=== PATIENT | male | born 1945 | race African-American/Black ===

== ENCOUNTER 2024-09-06 12:14 | Emergency (ER) | payer MEDICARE, MEDICAID ==
[~2024-09-06] VITALS: Ht 177.8 cm; Wt 72.0 kg
[~2024-09-06 12:14] MED LIST: ASPI-1406 PO; DOCU-422 PO; FOLI1TAB87 PO; HYDR12.54 PO; LACT10SO70 PO; LEVO750T68 MT; NORT10CA PO
[2024-09-06 12:26] VITALS: O2SAT 99
[2024-09-06 13:58] LABS: CLARITY URINE CLEAR (CLEAR); COLOR URINE YELLOW (YELLOW); GLUCOSE URINE NEGATIVE (NEGATIVE); KETONES URINE NEGATIVE (NEGATIVE); LEUKOCYTE ESTERASE URINE TRACE (NEGATIVE); NITRITE URINE NEGATIVE (NEGATIVE); OCCULT BLOOD URINE NEGATIVE (NEGATIVE); PH URINE 6.5 (4.5-8.0); PROTEIN URINE NEGATIVE (NEGATIVE); SPECIFIC GRAVITY URINE 1.012 (1.005-1.030); UROBILINOGEN URINE 0.2 E.U./dL (0.2-1.0)
[2024-09-06 14:31] LABS: WBC URINE 0-2 /hpf (0-2)
[2024-09-06 14:32] LABS: RBC URINE NONE SEEN /hpf (0-2)
[2024-09-06 14:33] LABS: SQUAMOUS EPITHELIAL CELL URINE RARE /lpf (RARE/1+)
[2024-09-06 14:34] LABS: BACTERIA URINE TRACE
[2024-09-06 15:26] VITALS: BP 117/71; PULSE 72; RESP 18; TEMP 36.5; O2SAT 99
== END 2024-09-06 15:30 | disposition home or self-care (01) ==
LOC: ER 12:14
DX: R33.9 Retention of urine, unspecified (principal); I10 Essential (primary) hypertension; Z79.899 Other long term (current) drug therapy; Z86.73 Personal history of transient ischemic attack (TIA), and cerebral infarction without residual deficits; Z88.0 Allergy status to penicillin; Z88.6 Allergy status to analgesic agent
CPT/HCPCS: 51702; 81003; 99284

== ENCOUNTER 2024-10-25 11:04 | Emergency (ER) | payer MEDICARE, MEDICAID ==
[~2024-10-25] VITALS: Ht 172.7 cm; Wt 65.0 kg
[2024-10-25 11:14] VITALS: O2SAT 100
[2024-10-25 11:52] LABS: BASOPHILS % 0.8 % (0.0-2.0); EOSINOPHILS % 10.2 % (0.0-5.0); HEMATOCRIT. 31.1 % (42.0-52.0); HEMOGLOBIN. 10.4 g/dL (14.0-18.0); LYMPHOCYTES % 12.2 % (20.0-50.0); MEAN PLATELET VOLUME 6.5 fl (7.4-10.4); MONOCYTES % 8.9 % (2.0-8.0); NEUTROPHILS % 67.9 % (40.0-76.0); PLATELET 160 x1000/uL (130-400); RED BLOOD CELL COUNT 3.23 mill/uL (4.7-6.1); RED CELL DISTRIBUTION WIDTH 17.6 % (11.6-14.6)
[2024-10-25 12:09] LABS: CREATININE 1.1 mg/dL (0.6-1.3); UREA NITROGEN BLOOD 15 mg/dL (9-23)
[2024-10-25 13:37] LABS: CLARITY URINE CLEAR (CLEAR); COLOR URINE YELLOW (YELLOW); GLUCOSE URINE NEGATIVE (NEGATIVE); KETONES URINE NEGATIVE (NEGATIVE); LEUKOCYTE ESTERASE URINE NEGATIVE (NEGATIVE); NITRITE URINE NEGATIVE (NEGATIVE); OCCULT BLOOD URINE NEGATIVE (NEGATIVE); PH URINE 7.0 (4.5-8.0); PROTEIN URINE NEGATIVE (NEGATIVE); SPECIFIC GRAVITY URINE 1.016 (1.005-1.030); UROBILINOGEN URINE 1.0 E.U./dL (0.2-1.0)
[2024-10-25 14:31] VITALS: BP 130/70; PULSE 68; RESP 18; TEMP 36.9; O2SAT 99
== END 2024-10-25 14:32 | disposition home or self-care (01) ==
LOC: ER 11:04
DX: R33.9 Retention of urine, unspecified (principal); I10 Essential (primary) hypertension; Z86.73 Personal history of transient ischemic attack (TIA), and cerebral infarction without residual deficits; Z79.899 Other long term (current) drug therapy; Z79.82 Long term (current) use of aspirin; Z88.0 Allergy status to penicillin; Z88.6 Allergy status to analgesic agent
CPT/HCPCS: 36415; 51702; 80048; 81003; 85025; 99284

== ENCOUNTER 2024-12-01 07:43 | Emergency (ER) | payer MEDICARE, MEDICAID ==
[~2024-12-01] VITALS: Ht 177.8 cm; Wt 69.0 kg
[2024-12-01 08:03] VITALS: O2SAT 100
[2024-12-01 09:06] LABS: HEMATOCRIT. 33.7 % (42.0-52.0); HEMOGLOBIN. 10.8 g/dL (14.0-18.0); MEAN PLATELET VOLUME 6.9 fl (7.4-10.4); PLATELET 170 x1000/uL (130-400); RED BLOOD CELL COUNT 3.40 mill/uL (4.7-6.1); RED CELL DISTRIBUTION WIDTH 17.2 % (11.6-14.6)
[2024-12-01 09:15] LABS: CREATININE 1.2 mg/dL (0.6-1.3); UREA NITROGEN BLOOD 19 mg/dL (9-23)
[2024-12-01 10:44] LABS: CLARITY URINE CLEAR (CLEAR); COLOR URINE YELLOW (YELLOW); GLUCOSE URINE NEGATIVE (NEGATIVE); KETONES URINE NEGATIVE (NEGATIVE); LEUKOCYTE ESTERASE URINE NEGATIVE (NEGATIVE); NITRITE URINE NEGATIVE (NEGATIVE); OCCULT BLOOD URINE NEGATIVE (NEGATIVE); PH URINE 7.0 (4.5-8.0); PROTEIN URINE NEGATIVE (NEGATIVE); SPECIFIC GRAVITY URINE 1.016 (1.005-1.030); UROBILINOGEN URINE 0.2 E.U./dL (0.2-1.0)
[2024-12-01 11:41] LABS: EOSINOPHILS % MANUAL 16.0 % (0.0-5.0); LYMPHOCYTES % MANUAL 24.0 % (20.0-50.0); MONOCYTES % MANUAL 9.0 % (2.0-8.0); NEUTROPHILS % MANUAL 51.0 % (45.0-75.0); PLATELET ESTIMATE NORMAL
[2024-12-01 15:06] VITALS: BP 155/60; PULSE 72; RESP 15; TEMP 36.9; O2SAT 100
== END 2024-12-01 15:08 | disposition home or self-care (01) ==
LOC: ER 07:43
DX: R33.9 Retention of urine, unspecified (principal); E78.00 Pure hypercholesterolemia, unspecified; I10 Essential (primary) hypertension; N40.1 Benign prostatic hyperplasia with lower urinary tract symptoms; Z86.73 Personal history of transient ischemic attack (TIA), and cerebral infarction without residual deficits; Z88.0 Allergy status to penicillin; Z88.6 Allergy status to analgesic agent
CPT/HCPCS: 36415; 51702; 80048; 81003; 85025; 99284; A4606

== ENCOUNTER 2024-12-18 16:14 | Emergency (ER) | payer MEDICARE, MEDICAID ==
[~2024-12-18] VITALS: Ht 177.8 cm; Wt 68.0 kg
[2024-12-18 16:25] VITALS: TEMP 36.9; O2SAT 100
[2024-12-18] MEDS: ACETAMINOPHEN 325MG TABLET PO SCH (18:22)
[2024-12-18 19:00] LABS: HEMATOCRIT. 33.6 % (42.0-52.0); HEMOGLOBIN. 10.8 g/dL (14.0-18.0); MEAN PLATELET VOLUME 6.5 fl (7.4-10.4); PLATELET 161 x1000/uL (130-400); RED BLOOD CELL COUNT 3.40 mill/uL (4.7-6.1); RED CELL DISTRIBUTION WIDTH 17.4 % (11.6-14.6)
[2024-12-18 19:20] LABS: CREATININE 1.2 mg/dL (0.6-1.3); UREA NITROGEN BLOOD 14 mg/dL (9-23)
[2024-12-18 19:21] LABS: TROPONIN I HIGH SENSITIVITY 5 ng/L (3.0-53)
[2024-12-18 19:28] LABS: EOSINOPHILS % MANUAL 18.0 % (0.0-5.0); LYMPHOCYTES % MANUAL 21.0 % (20.0-50.0); MONOCYTES % MANUAL 7.0 % (2.0-8.0); NEUTROPHILS % MANUAL 54.0 % (45.0-75.0); PLATELET ESTIMATE NORMAL
[2024-12-18 19:58] VITALS: BP 116/60; PULSE 84; RESP 14; O2SAT 98
== END 2024-12-18 20:00 | disposition home or self-care (01) ==
LOC: ER 16:14
DX: N40.0 Benign prostatic hyperplasia without lower urinary tract symptoms (principal); R14.0 Abdominal distension (gaseous); I10 Essential (primary) hypertension; Z79.899 Other long term (current) drug therapy; Z88.0 Allergy status to penicillin; Z88.6 Allergy status to analgesic agent
CPT/HCPCS: 36415; 74176; 80048; 84484; 85025; 99284

== ENCOUNTER 2025-01-19 20:13 | Emergency (ER) | payer MEDICARE, MEDICAID ==
[~2025-01-19] VITALS: Ht 177.8 cm; Wt 73.0 kg
[2025-01-19 20:35] VITALS: O2SAT 100
[2025-01-19 21:22] LABS: CLARITY URINE CLEAR (CLEAR); COLOR URINE YELLOW (YELLOW); GLUCOSE URINE NEGATIVE (NEGATIVE); KETONES URINE NEGATIVE (NEGATIVE); LEUKOCYTE ESTERASE URINE TRACE (NEGATIVE); NITRITE URINE NEGATIVE (NEGATIVE); OCCULT BLOOD URINE NEGATIVE (NEGATIVE); PH URINE 6.0 (4.5-8.0); PROTEIN URINE NEGATIVE (NEGATIVE); SPECIFIC GRAVITY URINE 1.019 (1.005-1.030); UROBILINOGEN URINE 1.0 E.U./dL (0.2-1.0)
[2025-01-19 21:45] LABS: BACTERIA URINE 1+; RBC URINE 0-2 /hpf (0-2); SQUAMOUS EPITHELIAL CELL URINE FEW /lpf (RARE/1+); WBC URINE 0-2 /hpf (0-2)
[2025-01-19 22:18] VITALS: BP 109/73; PULSE 50; RESP 14; TEMP 36.5; O2SAT 100
== END 2025-01-19 22:38 | disposition home or self-care (01) ==
LOC: ER 20:13
DX: T83.098A Other mechanical complication of other urinary catheter, initial encounter (principal); I10 Essential (primary) hypertension; Z86.73 Personal history of transient ischemic attack (TIA), and cerebral infarction without residual deficits; Z79.899 Other long term (current) drug therapy; Z88.0 Allergy status to penicillin; Z88.6 Allergy status to analgesic agent; X58.XXXA Exposure to other specified factors, initial encounter; Y93.89 Activity, other specified; Y92.89 Other specified places as the place of occurrence of the external cause; Y99.8 Other external cause status
CPT/HCPCS: 51702; 81003; 99284

== ENCOUNTER 2025-02-01 16:53 | Emergency (ER) | payer MEDICARE, MEDICAID ==
[~2025-02-01] VITALS: Ht 167.6 cm; Wt 70.0 kg
[2025-02-01 17:03] VITALS: TEMP 36.7; O2SAT 99
[2025-02-01] MEDS ORDERED: NITR-87 MT (17:39)
[2025-02-01] MEDS: NITROFURANTOIN 100MG M/M CAPSULE PO ONE (17:45)
[2025-02-01 19:10] VITALS: BP 138/71; PULSE 57; RESP 16; O2SAT 100
== END 2025-02-01 19:12 | disposition home or self-care (01) ==
LOC: ER 16:53
DX: R33.9 Retention of urine, unspecified (principal); I10 Essential (primary) hypertension; N40.1 Benign prostatic hyperplasia with lower urinary tract symptoms; Z79.899 Other long term (current) drug therapy; Z86.73 Personal history of transient ischemic attack (TIA), and cerebral infarction without residual deficits; Z88.0 Allergy status to penicillin; Z88.6 Allergy status to analgesic agent
CPT/HCPCS: 51702; 99284

== ENCOUNTER 2025-02-21 07:06 | Inpatient (IN) | payer MEDICARE, MEDICAID ==
[~2025-02-21] VITALS: Ht 177.8 cm; Wt 68.1 kg
[~2025-02-21 07:06] MED LIST changes: +NITR-87 MT
[2025-02-21 07:08] VITALS: O2SAT 99
[2025-02-21] MEDS: ACETAMINOPHEN 1000MG/100ML 100 ML IV ONE (07:48)
[2025-02-21 07:53] LABS: BASOPHILS % 0.9 % (0.0-2.0); EOSINOPHILS % 11.2 % (0.0-5.0); HEMATOCRIT. 33.9 % (42.0-52.0); HEMOGLOBIN. 10.9 g/dL (14.0-18.0); LYMPHOCYTES % 16.2 % (20.0-50.0); MEAN PLATELET VOLUME 7.0 fl (7.4-10.4); MONOCYTES % 11.4 % (2.0-8.0); NEUTROPHILS % 60.3 % (40.0-76.0); PLATELET 154 x1000/uL (130-400); RED BLOOD CELL COUNT 3.46 mill/uL (4.7-6.1); RED CELL DISTRIBUTION WIDTH 16.8 % (11.6-14.6)
[2025-02-21 08:07] LABS: CREATININE 1.1 mg/dL (0.6-1.3)
[2025-02-21 08:08] LABS: PROTEIN TOTAL 7.1 g/dL (6.0-8.3); UREA NITROGEN BLOOD 13 mg/dL (9-23)
[2025-02-21 08:09] LABS: ASPARTATE AMINOTRANSFERASE 33 IU/L (<34)
[2025-02-21 08:10] LABS: BILIRUBIN DIRECT 0.2 mg/dL (<=3.0); BILIRUBIN TOTAL 0.5 mg/dL (0.1-1.0)
[2025-02-21 09:29] LABS: CLARITY URINE CLOUDY (CLEAR); COLOR URINE YELLOW (YELLOW); GLUCOSE URINE NEGATIVE (NEGATIVE); KETONES URINE TRACE (NEGATIVE); LEUKOCYTE ESTERASE URINE TRACE (NEGATIVE); NITRITE URINE NEGATIVE (NEGATIVE); OCCULT BLOOD URINE NEGATIVE (NEGATIVE); PH URINE 6.5 (4.5-8.0); PROTEIN URINE NEGATIVE (NEGATIVE); SPECIFIC GRAVITY URINE 1.018 (1.005-1.030); UROBILINOGEN URINE 1.0 E.U./dL (0.2-1.0)
[2025-02-21 09:56] LABS: SQUAMOUS EPITHELIAL CELL URINE NONE SEEN /lpf (RARE/1+)
[2025-02-21 09:58] LABS: BACTERIA URINE 4+
[2025-02-21 10:00] LABS: RBC URINE 0-2 /hpf (0-2)
[2025-02-21] MEDS ORDERED: GUAIFENESIN 200MG/10ML SUGAR FREE UDC PO PRN (11:00)
[2025-02-21] MEDS ORDERED: MAGNESIUM/ALUMINUM HYDROXIDE/SIMETHICONE 30ML UDC PO PRN (11:00)
[2025-02-21] MEDS ORDERED: IPRATROPIUM/ALBUTEROL 0.5-3(2.5)MG/3ML NEB HHN PRN (11:00)
[2025-02-21] MEDS ORDERED: ONDANSETRON HCL 4MG/2ML INJ IV PRN (11:00)
[2025-02-21] MEDS ORDERED: ACETAMINOPHEN 325MG TABLET PO PRN (11:00)
[2025-02-21 12:53] VITALS: BP 167/65; PULSE 56; RESP 14; TEMP 36.4; O2SAT 99
[2025-02-21 13:05] VITALS: BP 167/65; PULSE 56; RESP 15; TEMP 36.4736
[2025-02-21] MEDS: TAMSULOSIN HCL 0.4MG SR CAPSULE PO SCH (13:19)
[2025-02-21] MEDS: CLONIDINE 0.1MG TABLET PO PRN (13:20)
[2025-02-21] MEDS: CLOPIDOGREL 75MG TABLET PO SCH (13:20)
[2025-02-21] MEDS: ENOXAPARIN 40MG/0.4ML SYR SUBCUT SCH (13:24)
[2025-02-21] MEDS: AMLODIPINE 10MG TABLET PO SCH (13:27)
[2025-02-21 14:45] LABS: FOLIC ACID (FOLATE) SERUM > 20.00 ng/mL (>5.38); VITAMIN B12 SERUM 965 pg/mL (211-911)
[2025-02-21] MEDS: CEFTRIAXONE 2GM/50ML 50 ML IV SCH (15:03)
[2025-02-21 16:00] VITALS: BP 137/71; PULSE 58; RESP 20; TEMP 36.2; O2SAT 98
[2025-02-21] MEDS: NA PHOS,M-B/NA PHOS,DI-BA ENEMA 118ML PR ONE (16:31)
[2025-02-21] MEDS: ACETAMINOPHEN 325MG TABLET PO PRN (18:21)
[2025-02-21 20:00] VITALS: BP 105/58; PULSE 67; RESP 19; TEMP 36.4; O2SAT 100
[2025-02-21] MEDS: LEVETIRACETAM 500MG TABLET PO SCH (21:31)
[2025-02-21] MEDS: DOCUSATE SODIUM 100MG CAPSULE PO PRN (21:31)
[2025-02-21] MEDS: ATORVASTATIN CALCIUM 40MG TABLET PO SCH (21:31)
[2025-02-22] VITALS: BP 137/59; PULSE 60; RESP 18; TEMP 36.8; O2SAT 100
[2025-02-22 04:00] VITALS: BP 134/68; PULSE 66; RESP 18; TEMP 36.7; O2SAT 98
[2025-02-22 07:03] LABS: BASOPHILS % 0.5 % (0.0-2.0); EOSINOPHILS % 4.3 % (0.0-5.0); HEMATOCRIT. 33.0 % (42.0-52.0); HEMOGLOBIN. 10.8 g/dL (14.0-18.0); LYMPHOCYTES % 11.6 % (20.0-50.0); MEAN PLATELET VOLUME 6.8 fl (7.4-10.4); MONOCYTES % 10.2 % (2.0-8.0); NEUTROPHILS % 73.4 % (40.0-76.0); PLATELET 149 x1000/uL (130-400); RED BLOOD CELL COUNT 3.36 mill/uL (4.7-6.1); RED CELL DISTRIBUTION WIDTH 16.6 % (11.6-14.6)
[2025-02-22 07:09] LABS: CREATININE 1.1 mg/dL (0.6-1.3); TRIGLYCERIDE 52 mg/dL (0-150); UREA NITROGEN BLOOD 13 mg/dL (9-23)
[2025-02-22 07:10] LABS: LDL CHOLESTEROL 53 mg/dL (5-100)
[2025-02-22 07:11] LABS: T4 FREE 1.28 ng/dL (0.89-1.76)
[2025-02-22 08:25] VITALS: BP 144/71; PULSE 61; RESP 20; TEMP 36.6; O2SAT 100
[2025-02-22] MEDS: PANTOPRAZOLE SODIUM 40 MG/VIAL IV SCH (10:25)
[2025-02-22] MEDS: ASPIRIN 81MG EC TABLET PO SCH (10:26)
[2025-02-22 12:06] VITALS: BP 120/72; PULSE 79; RESP 19; TEMP 36.7; O2SAT 97
[2025-02-22] MEDS: CEFTRIAXONE 2GM/50ML 50 ML IV SCH (15:42)
[2025-02-22 16:05] VITALS: BP 122/64; PULSE 64; RESP 20; TEMP 36.4; O2SAT 98
[2025-02-22 20:00] VITALS: BP 105/65; PULSE 64; RESP 18; TEMP 36.5; O2SAT 100
[2025-02-23] VITALS: BP 131/57; PULSE 58; RESP 19; TEMP 36.3; O2SAT 100
[2025-02-23 04:00] VITALS: BP 143/98; PULSE 57; RESP 18; TEMP 36.6; O2SAT 100
[2025-02-23 08:12] VITALS: BP 128/61; PULSE 101; RESP 20; TEMP 36.6; O2SAT 99
[2025-02-23] MEDS ORDERED: NITR-87 MT (09:27)
[2025-02-23] MEDS ORDERED: AMLO10TA80 PO (09:27)
[2025-02-23] MEDS ORDERED: LIP40 PO (09:27)
[2025-02-23] MEDS ORDERED: TAMS-54 PO (09:27)
[2025-02-23] MEDS ORDERED: KEPP500 PO (09:27)
[2025-02-23] MEDS: METHYL SALICYLATE/MENTHOL CREAM 85GM TOP PRN (11:48)
[2025-02-23 11:56] VITALS: BP 114/60; PULSE 54; RESP 18; TEMP 36.2; O2SAT 100
[2025-02-23 14:44] VITALS: BP 121/63; PULSE 100; RESP 14; TEMP 96.8
[2025-02-23 16:04] VITALS: BP 127/68; PULSE 59; RESP 18; TEMP 36.7; O2SAT 99
== END 2025-02-23 16:45 | disposition home or self-care (01) | DRG 699 ==
LOC: ER 07:06 → 7WST 09:02 → EDBEDREQSVC 09:07 → EDBEDREQTM 09:07 → EDBEDREQ 09:07 → 7WST 21:47
PROVIDERS: ADMIT Internal Medicine; ATTEND Internal Medicine
DX: T83.518A Infection and inflammatory reaction due to other urinary catheter, initial encounter (principal); N39.0 Urinary tract infection, site not specified; L89.159 Pressure ulcer of sacral region, unspecified stage; I10 Essential (primary) hypertension; G40.909 Epilepsy, unspecified, not intractable, without status epilepticus; K56.41 Fecal impaction; N40.0 Benign prostatic hyperplasia without lower urinary tract symptoms; Z74.01 Bed confinement status; Z90.5 Acquired absence of kidney; Z88.6 Allergy status to analgesic agent; Z88.0 Allergy status to penicillin; Y92.89 Other specified places as the place of occurrence of the external cause
CPT/HCPCS: 36415; 74176; 80048; 80061; 80076; 81003; 82607; 82728; 82746; 83540; 83550; 84145; 84153; 84439; 84443; 85025; 85044; 93970; 96374; 99285; A4606; J0696; J1650; J2470; J0131